=== PATIENT | female | born 1990 | race Two or more races ===

== ENCOUNTER 2024-05-04 00:55 | Emergency (ER) | payer OTHER ==
[~2024-05-04] VITALS: Ht 165.1 cm; Wt 81.6 kg
[~2024-05-04 00:55] MED LIST: CARAFATE1 GM PO; PEPCID AC20 MG PO; SYNTHROID100 MCG PO
[2024-05-04] MEDS ORDERED: RINGERS SOLUTION,LACTATED 1,000 ML IV STA (04:28)
[2024-05-04] MEDS ORDERED: ONDANSETRON HCL 2 MG/ML VIAL IV STA (04:29)
[2024-05-04] MEDS ORDERED: FAMOtidine 10 MG/ML (4ML VIAL) IV PUSH STA (04:29)
[2024-05-04] MEDS ORDERED: DIPHENOXYLATE HCL/ATROPINE 1 UDTAB TABLET PO STA (04:29)
[2024-05-04 05:15] LABS: HEMATOCRIT 38.3 % (36.0-45.00); HEMOGLOBIN 13.1 g/dL (12.0-15.00); MEAN CELL VOLUME 80.8 fL (80.00-100.00); MEAN CORPUSCULAR HEMOGLOBIN 27.7 pg (27.00-32.0); MEAN CORPUSCULAR HGB CONC 34.3 g/dl (32.0-36.0); PLATELET COUNT 232 K/uL (150-450); RED BLOOD COUNT 4.74 M/uL (4.00-6.00); RED CELL DISTRIBUTION WIDTH 13.2 % (11.5-14.5)
[2024-05-04] MEDS ORDERED: KETOROLAC TROMETHAMINE 30 MG VIAL IV SCH (07:45)
[2024-05-04 08:06] LABS: CALCIUM 8.5 mg/dL (8.5-10.1); CREATININE SERUM 0.63 mg/dL (0.55-1.02); GFR 108.83; POTASSIUM 3.89 mEq/L (3.5-5.1)
== END 2024-05-04 08:09 | disposition home or self-care (01) ==
LOC: ER 00:57
DX: K52.9 Noninfective gastroenteritis and colitis, unspecified (principal); Z88.8 Allergy status to other drugs, medicaments and biological substances; Z91.013 Allergy to seafood